=== PATIENT | female | born 1960 | race Caucasian/White ===

== ENCOUNTER 2023-10-20 16:45 | Emergency (ER) | payer BC ==
[~2023-10-20] VITALS: Ht 170.2 cm; Wt 93.9 kg
[2023-10-20] MEDS: KETOROLAC 30MG VIAL (30MG/ML) IM ONE (17:55)
[2023-10-20] MEDS: ONDANSETRON ODT 4MG TAB SL ONE (17:55)
[2023-10-20 18:06] LABS: APPEARANCE,URINE CLEAR (CLEAR); BILIRUBIN,URINE NEGATIVE (NEGATIVE); COLOR,URINE YELLOW (YELLOW); GLUCOSE, URINE (UA) NEGATIVE (NEGATIVE); KETONES,URINE NEGATIVE (NEGATIVE); LEUKOCYTE ESTERASE ,URINE NEGATIVE Leu/uL (NEGATIVE); NITRATE,URINE NEGATIVE (NEGATIVE); OCCULT BLOOD,URINE MODERATE (NEGATIVE); PH,URINE 5.5 (5.0-8.0); PROTEIN,URINE 30 mg/dL (NEGATIVE); UROBILINOGEN,URINE 0.2 mg/dL (0.2-1.0)
[2023-10-20 18:09] LABS: ADD UA MICROSCOPIC YES
[2023-10-20 18:10] LABS: BACTERIA,URINE RARE /HPF (None Seen); MUCUS,URINE RARE LPF (None Seen)
[2023-10-20] MEDS ORDERED: IBUP-2077 PO (21:46)
[2023-10-20 21:50] VITALS: BP 130/78; PULSE 88; RESP 16; O2SAT 99
== END 2023-10-20 21:50 | disposition home or self-care (01) ==
LOC: EDH 16:45
DX: M54.50 Low back pain, unspecified (principal); M48.061 Spinal stenosis, lumbar region without neurogenic claudication; E11.9 Type 2 diabetes mellitus without complications; E78.00 Pure hypercholesterolemia, unspecified; I10 Essential (primary) hypertension
CPT/HCPCS: 99284; 81001; 72100; 96372; J1885